=== PATIENT | female | born 1945 | race Caucasian/White ===

== ENCOUNTER 2017-04-25 07:15 | Inpatient (IN) | payer OTHER, MEDICARE ==
[~2017-04-25] VITALS: Ht 162.6 cm; Wt 73.8 kg
[~2017-04-25 07:15] MED LIST: AEC81 PO; ALPR0.255 PO; AMIT10TA6 PO; METO50TA18 PO
[2017-04-25 13:14] VITALS: BP 140/64
[2017-04-25 13:26] LABS: BASOPHILS % (AUTO) 0.8 % (0.0-5.0); EOSINOPHILS % (AUTO) 2.1 % (0.0-8.0); HEMATOCRIT 38.7 % (36-48); LYMPHOCYTES % (AUTO) 25.2 % (21.0-51.0); MEAN CORPUSCULAR HEMOGLOBIN 28.7 pg (27.0-33.0); MEAN CORPUSCULAR HGB CONC 33.4 g/dL (32.0-36.0); MEAN CORPUSCULAR VOLUME 85.9 fL (79-99); MONOCYTES % (AUTO) 6.1 % (3.0-13.0); NEUTROPHILS % (AUTO) 65.8 % (40.0-77.0); PLATELET COUNT (AUTO) 249 K/uL (130-400); RED CELL DISTRIBUTION WIDTH 14.5 % (11.0-15.5); WHITE BLOOD COUNT (AUTO) 7.5 K/uL (4.8-10.8)
[2017-04-25 13:32] LABS: POTASSIUM 4.2 mmol/L (3.5-5.1)
[2017-04-25] MEDS ORDERED: CARB-38 PO (15:52)
[2017-04-25] MEDS ORDERED: ROPI1TAB11 PO (15:52)
[2017-04-25] MEDS ORDERED: CARB1TAB41 PO (15:52)
[2017-04-25] MEDS ORDERED: LOSA25TA21 PO (15:53)
[2017-04-29] VITALS (25 sets, daily range): BP systolic 109–145; BP diastolic 50–71
[2017-04-29] MEDS ORDERED: CEFAZOLIN SODIUM 1 GM VIAL IVP SCH ×2 (05:00→14:00)
[2017-04-29] MEDS ORDERED: LACTATED RINGERS 1000ML 1,000 ML IV ONE (06:24)
[2017-04-29] MEDS ORDERED: BUPIVACAINE/PF 0.25% 30ML VIAL IJ ONE (06:59)
[2017-04-29] MEDS ORDERED: EPINEPHRINE 1 MG/ML AMPULE ONE (06:59)
[2017-04-29] MEDS ORDERED: THROMBIN-JMI 20000 UNIT KIT TP ONE (07:00)
[2017-04-29] MEDS ORDERED: BACITRACIN 50,000 UNIT VIAL ONE (07:00)
[2017-04-29] MEDS ORDERED: ONDANSETRON HCL 4 MG/2 ML VIAL ONE ×2 (07:06→07:59)
[2017-04-29] MEDS ORDERED: DEXAMETHASONE SOD PHOSPHATE 10MG/ML 1ML VIAL ONE (07:06)
[2017-04-29] MEDS ORDERED: PROPOFOL 10 MG/ML 20ML VIAL IV ONE (07:07)
[2017-04-29] MEDS ORDERED: LIDOCAINE PF 2% 5ML ABBOJECT ONE (07:07)
[2017-04-29] MEDS ORDERED: MIDAZOLAM HCL 1 MG/ML 2ML VIAL ONE (07:07)
[2017-04-29] MEDS ORDERED: FENTANYL CITRATE PF 50 MCG/1 ML 2ML VIAL ONE ×3 (07:07→10:15)
[2017-04-29] MEDS ORDERED: NEOSTIGMINE METHYLSULFATE 1MG/ML IV ONE (07:07)
[2017-04-29] MEDS ORDERED: SUCCINYLCHOLINE 200MG/10ML SYR ONE (07:07)
[2017-04-29] MEDS: DURAMORPH PF1 MG/ML 10ML AMP IV ONE ×2 (07:30→08:39)
[2017-04-29] MEDS ORDERED: EPHEDRINE SULFATE 50 MG/ML AMPULE ONE (08:03)
[2017-04-29] MEDS ORDERED: CEFAZOLIN SODIUM 1 GM VIAL ONE (11:12)
[2017-04-29] MEDS ORDERED: NALOXONE HCL 0.4 MG/1 ML ML ONE (12:07)
[2017-04-29] MEDS ORDERED: ROCURONIUM BROMIDE 10MG/1ML 5ML VL ONE (12:09)
[2017-04-29] MEDS ORDERED: PROMETHAZINE HCL 25 MG/ML 1ML AMPULE IM PRN (12:15)
[2017-04-29] MEDS ORDERED: ALPRAZOLAM 0.25 MG TABLET PO SCH (12:15)
[2017-04-29] MEDS: DEXAMETHASONE SOD PHOSPHATE 4 MG/ML 1ML VIAL IVP SCH ×3 (12:15→23:58)
[2017-04-29] MEDS ORDERED: SODIUM CHLORIDE 0.9% 10 ML VIAL IVP PRN (12:15)
[2017-04-29] MEDS ORDERED: CEFAZOLIN 2GM / 50 ML 50 ML IV SCH (12:15)
[2017-04-29] MEDS ORDERED: MORPHINE SULFATE 2 MG/ML 1ML SYG IVP PRN (12:15)
[2017-04-29] MEDS: LEVODOPA PO SCH ×3 (13:58→21:00)
[2017-04-29] MEDS: CARBIDOPA PO SCH ×3 (13:58→21:00)
[2017-04-29] MEDS: LACTATED RINGERS 1000ML 1,000 ML IV SCH (14:43)
[2017-04-29] MEDS: HYDROCODONE/ACETAMINOPHEN 5/325 MG TAB PO PRN (17:08)
[2017-04-29] MEDS: ROPINIROLE HCL 1 MG TABLET PO SCH (21:00)
[2017-04-29] MEDS ORDERED: AMITRIPTYLINE HCL 10 MG TABLET PO SCH (21:00)
[2017-04-29] MEDS ORDERED: LEVODOPA PO SCH (21:00)
[2017-04-29] MEDS ORDERED: CARBIDOPA PO SCH (21:00)
[2017-04-30] VITALS: BP 148/76
[2017-04-30] MEDS: LACTATED RINGERS 1000ML 1,000 ML IV SCH (01:25)
[2017-04-30 04:00] VITALS: BP 123/55
[2017-04-30] MEDS: DEXAMETHASONE SOD PHOSPHATE 4 MG/ML 1ML VIAL IVP SCH (05:29)
[2017-04-30] MEDS: HYDROCODONE/ACETAMINOPHEN 5/325 MG TAB PO PRN (07:02)
[2017-04-30 08:10] VITALS: BP_SYST 123; BP_SYST 146; BP_DIAS 67; BP_DIAS 68
[2017-04-30] MEDS: ROPINIROLE HCL 1 MG TABLET PO SCH (08:39)
[2017-04-30] MEDS: CARBIDOPA PO SCH (08:41)
[2017-04-30] MEDS: LEVODOPA PO SCH (08:41)
[2017-04-30] MEDS ORDERED: METOPROLOL TARTRATE 50 MG TAB PO SCH (09:00)
[2017-04-30] MEDS ORDERED: LOSARTAN 50 MG TABLET PO SCH (09:00)
[2017-04-30] MEDS ORDERED: ASPIRIN 81 MG EC TAB PO SCH (09:00)
== END 2017-04-30 09:40 | disposition home or self-care (01) | DRG 460 ==
LOC: EDSTATUS 14:00 → DAHIP 04-29 05:38 → 4BH 04-29 13:50
PROVIDERS: ADMIT Neurological Surgery; ATTEND Neurological Surgery
PROC: 0SG0071 Fusion of Lumbar Vertebral Joint with Autologous Tissue Substitute, Posterior Approach, Posterior Column, Open Approach (ICD-10-PCS; principal; 2017-04-29 07:30)
PROC: 01NB0ZZ Release Lumbar Nerve, Open Approach (ICD-10-PCS; 2017-04-29 07:30)
PROC: BR1 Imaging, Axial Skeleton, Except Skull and Facial Bones, Fluoroscopy (ICD-10-PCS; 2017-04-29 07:30)
PROC: 4A11X4G Monitoring of Peripheral Nervous Electrical Activity, Intraoperative, External Approach (ICD-10-PCS; 2017-04-29 07:30)
DX: M43.16 Spondylolisthesis, lumbar region (principal); G20 Parkinson's disease; M48.061 Spinal stenosis, lumbar region without neurogenic claudication; E11.9 Type 2 diabetes mellitus without complications; I10 Essential (primary) hypertension; M21.379 Foot drop, unspecified foot; M48.07 Spinal stenosis, lumbosacral region; M54.16 Radiculopathy, lumbar region; Z88.8 Allergy status to other drugs, medicaments and biological substances; Z91.018 Allergy to other foods
CPT/HCPCS: 36415; 72020; 80048; 85025; A4344; J0171; J0330; J0690; J1100; J2001; J2250; J2274; J2310; J2405; J2704; J2710; J3010; J3490; J7120

== ENCOUNTER → 2017-05-30 | Outpatient (CLI) | payer MEDICARE, OTHER ==
[~2017-05-30] MED LIST changes: +CARB-38 PO; +CARB1TAB41 PO; +LOSA25TA21 PO; +ROPI1TAB11 PO
== END | disposition home or self-care (01) ==
LOC: RAH 08:45
PROVIDERS: ATTEND Neurological Surgery
DX: M43.26 Fusion of spine, lumbar region (principal); M85.88 Other specified disorders of bone density and structure, other site
CPT/HCPCS: 72100